=== PATIENT | female | born 1965 | race Caucasian/White ===

== ENCOUNTER 2019-09-08 23:10 | Emergency (ER) | payer OTHER, MEDICAID ==
[~2019-09-08] VITALS: Ht 165.1 cm; Wt 68.0 kg
[2019-09-08 23:15] VITALS: BP 139/77
--- NOTE | 2019-09-08 23:15 | NUR ---
53 Y/O FEMALE BIB AMBULANCE. PRESENTS TO ED WITH CHIEF COMPLAINT OF SUICIDE ATTEMPT. PLACED ON 5150 HOLD BY ALIZE BOUDREAUX, ADVISED BY OFFICER ZEINA . PER RN CHRONIC, PT WAS ENROUTE FOR PSYCH EVAL WITH ALIZE BOUDREAUX WHEN PT ENDORSED WANTING TO HURT HERSELF AND TAKING 4 TABS OF TANAZADINE 4MG. PT VSS. NO SOB/RESPIRATORY DISTRESS. PT DENIES ANY CHEST PAIN. UPON FACE TO FACE, PT PRESENTS DISORGANIZED; JUMPS FROM ONE TOPIC TO ANOTHER. PRESENTS WITH A BLUNT AFFECT, UNABLE TO PROVIDE SAFETY FOR WELL BEING. CONTINUES TO ENDORSE SUICIDAL IDEATIONS BUT GUARDED ABOUT ANY PLAN AT THE MOMENT; PER HOLD SHE STATES WANTING TO TAKE MUSCLE RELAXERS AND BLOOD PRESSURE MEDS. STATES BEING DEPRESSED AND ENDORSED HAVING AUDITORY HALLUCINATIONS; PT IS GUARDED ABOUT WHAT THE VOICES ARE SAYING, DENIES ANY COMMAND HALLUCINATIONS. CRISSY AWARE. WILL CONTINUE TO MONITOR 1:1 WITH ED STAFF AT BEDSIDE.
[2019-09-08] MEDS ORDERED: TIZA4CAP PO (23:25)
[2019-09-08] MEDS ORDERED: ATA25 PO (23:25)
[2019-09-08] MEDS ORDERED: METO-744 PO (23:25)
--- NOTE | 2019-09-08 23:25 | NUR ---
PT TOOK 4TABS OF TIZANIDINE 4MG TODAY PER PT. ERMD MADE AWARE
[2019-09-08 23:32] LABS: APPEARANCE,URINE CLEAR (CLEAR); BILIRUBIN,URINE NEGATIVE (NEGATIVE); BLOOD, URINE NEGATIVE (NEGATIVE); COLOR,URINE YELLOW (YELLOW); LEUKOCYTE ESTERASE ,URINE NEGATIVE (NEGATIVE); NITRITE, URINE NEGATIVE (NEGATIVE); PH,URINE 5.5 (5.0-9.0); UGLUCOSE NEGATIVE (NEGATIVE)
[2019-09-08 23:35] LABS: BARBITURATE, URINE NEG. ng/ml (NEG <=200); BENZODIAZEPINE, URINE NEG. ng/mL (NEG <=200); CANNABINOID, URINE NEG. ng/mL (NEG <=50); COCAINE, URINE NEG. ng/mL (NEG <=300); OPIATE, URINE NEG. ng/mL (NEG <=2000); PHENCYCLIDINE SCREEN,URINE NEG. ng/mL (NEG <=25)
--- NOTE | 2019-09-08 23:38 | NUR ---
CALLED POISON CONTROL REGARDING MEDICATION TINAZIDINE. SPOKE WITH GENNA. ADVISED TO MONITOR FOR BRADYCARDIA, HYPOTENSION, SEX OFFENDER TREATMENT PROFESSIONAL DEPRESSION. PT AT STABLE CONDITION. ERMD MADE AWARE. WILL CONTINUE TO MONITOR 1:1 WITH ED STAFF AT BEDSIDE.
[2019-09-08 23:44] LABS: RBC,URINE 0-5 /HPF (0-5); WBC,URINE 0-5 /HPF (0-5)
[2019-09-08 23:47] LABS: HEMATOCRIT 31.5 % (36-48); RED BLOOD CELL COUNT(AUTO) 3.35 MIL/uL (4.20-5.40)
--- NOTE | 2019-09-08 23:49 | NUR ---
PT ENDORSED INGESTING 4 TABLETS OF METROPOLOL 25MG. CALLED POISON CONTROL. SPOKE WITH BELEN. ADVISED TO CONTINUE TO MONITOR FOR BRADYCARDIA, HYPOTENSION, AND SENIOR TRIAL ATTORNEY DEPRESSION. IF VITAL SIGNS DETERIORATE, ADVISED TO BE GIVEN NS BOLUS.
[2019-09-09 00:01] LABS: ACETAMINOPHEN 11.1 ug/ml (10-30); ALBUMIN 3.1 g/dL (3.4-5.0); ANION GAP 16.7 (8-16); CREATININE 0.8 mg/dL (0.6-1.3); POTASSIUM 3.7 mmol/L (3.5-5.1); TOTAL BILIRUBIN 0.3 mg/dL (0.0-1.0)
[2019-09-09 00:16] LABS: BASOPHILS # (AUTO) 0.1 K/uL (0.00-0.22); BASOPHILS % (AUTO) 0.8 % (0.0-2.0); EOSINOPHILS # (AUTO) 0.1 K/uL (0-0.4); EOSINOPHILS % (AUTO) 0.7 % (0.0-4.0); HEMOGLOBIN 10.4 g/dL (12.0-16.0); LYMPHOCYTES # (AUTO) 1.6 K/uL (2.5-16.5); MEAN CORPUSCULAR HEMOGLOBIN 31 pg (27-31); MEAN CORPUSCULAR HGB CONC 33 g/dL (33-37); MONOCYTES # (AUTO) 0.7 K/uL (0.8-1.0); MONOCYTES % (AUTO) 7.8 % (1.7-9.3); NEUTROPHILS # (AUTO) 6.9 K/uL (1.8-7.7); NEUTROPHILS % (AUTO) 73.7 % (42.2-75.2); PLATELET COUNT (AUTO) 388 K/uL (140-450); RED CELL DISTRIBUTION WIDTH 14.3 % (11.6-13.7); WHITE BLOOD COUNT (AUTO) 9.4 K/uL (4.8-10.8)
[2019-09-09] MEDS ORDERED: NACL 0.9% 1,000 ML IV ONE (00:25)
--- NOTE | 2019-09-09 00:45 | NUR ---
PT LAYING IN BED, PT ALERT WITH FLIGHT OF IDEAS, COOPERATIVE, RR EVEN AND. REPORTS TOLERABLE CHRONIC NECK, AND MID AND LOWER BACK PAIN. VSS. ALL NEEDS MET AT THIS TIME.
[2019-09-09] MEDS ORDERED: LORazepam 2 MG/ML VIAL IVP ONE (01:55)
[2019-09-09] MEDS ORDERED: ZIPRASIDONE MESYLATE 20 MG/ML VIAL IM ONE (01:55)
--- NOTE | 2019-09-09 02:11 | NUR ---
PT CONTINUES TO BE DISORGANIZED. MAKES NONSENSICAL STATEMENTS; STATES "DON'T MIND ME. NO I LIKE LOOKING AT THAT THING ON THE FLOOR." CONTINUES TO ENDORSE FEELING HOPELESSNESS; STATES, "NO ONE REALLY CARES." ENCOURAGED PT TO APPROACH STAFF IF SI WORSENS. WILL CONTINUE TO MONITOR 1:1 WITH ED STAFF AT BEDSIDE.
--- NOTE | 2019-09-09 04:02 | NUR ---
PT ASLEEP ON BED. PT VSS. WILL CONTINUE TO MONITOR 1:1 WITH ED STAFF AT BEDSIDE.
--- NOTE | 2019-09-09 05:03 | NUR ---
SPOKE WITH CHARGE NURSE LÁZARO RN FROM [facility]. PT IS GOING TO BE ADMITTED TO ROOM 116-2, GENERAL PSYCH FLOOR, AT [facility]. WILL CALL BACK WHEN ETA FOR PT'S TRANSPORTATION IS DETERMINED. CHARGE NURSE LÁZARO RN CONTACT: [phone] RATLIFF/PSYCHIATRISTDR [facility]
--- NOTE | 2019-09-09 05:12 | NUR ---
SPOKE WITH LÁZARO ANTHONY AT [facility]. NOTIFIED ETA FOR AMBULANCE AND ARRIVAL AT DESTINATION.
[2019-09-09 05:30] VITALS: BP 102/71
--- NOTE | 2019-09-09 05:30 | NUR ---
PT PICKED UP BY [facility]. GAVE REPORT TO BACK HOE MACHINE OPERATOR. TRANSFERRED PT TO BACK [facility]E MACHINE OPERATOR'S [facility], STABLE CONDITION. PT CARE TRANSFERRED TO RECEIVING PARAMEDICS.
--- NOTE | 2019-09-09 05:31 | NUR ---
RECEIVED CALL FROM POISON CONTROL. SPOKE WITH GENNA REGARDING A FOLLOW UP ON PT. MADE AWARE OF PT'S CONDITION. CASE IS BEING CLOSED PER GENNA.
== END 2019-09-09 05:30 ==
LOC: MED 23:10
DX: R45.851 Suicidal ideations (principal); F29 Unspecified psychosis not due to a substance or known physiological condition; R44.0 Auditory hallucinations; F17.200 Nicotine dependence, unspecified, uncomplicated; Z98.84 Bariatric surgery status; Z90.710 Acquired absence of both cervix and uterus; Z98.890 Other specified postprocedural states; Z79.899 Other long term (current) drug therapy
CPT/HCPCS: 36415; 80053; 80305; 81001; 84484; 85025; 96372; 96374; 99285; G0480; G0482; J2060; J3486; J7030